=== PATIENT | female | born 2005 | race Caucasian/White ===

== ENCOUNTER 2024-01-30 18:37 | Emergency (ER) | payer SELFPAY ==
[~2024-01-30] VITALS: Ht 157.4 cm; Wt 95.3 kg
[~2024-01-30 18:37] MED LIST: AMOXIL250 MG/5 M PO; KEFLEX250 MG/5 M PO; NKHM; PRELONE15 MG/5 ML PO; Zithromax200 MG/5 M PO
[2024-01-30] MEDS ORDERED: Acetaminophen/Hydrocodone 5 MG/325 MG TABLET PO ONE (20:10)
== END 2024-01-30 20:26 | disposition home or self-care (01) ==
LOC: ED 18:37
DX: S60.022A Contusion of left index finger without damage to nail, initial encounter (principal); W22.03XA Walked into furniture, initial encounter; Y93.89 Activity, other specified; Y92.89 Other specified places as the place of occurrence of the external cause; Y99.0 Civilian activity done for income or pay